=== PATIENT | male | born 1980 | race American Indian/Alaskan Native ===

== ENCOUNTER 2017-08-23 16:47 | Emergency (ER) | payer SELFPAY ==
[2017-08-23] MEDS ORDERED: ASPIRIN PO ONE (18:41)
[2017-08-23 19:20] LABS: Partial Thromboplastin Time 25.9 Sec. (24.2-36.6)
[2017-08-23 19:27] LABS: Basophils % (Auto) 0.7 % (0.0-1.8); Eosinophils # (Auto) 0.2 K/mm3 (0.0-0.4); Eosinophils % (Auto) 4.4 % (0.0-4.3); Hematocrit 43.6 % (35.5-45.6); Lymphocytes # (Auto) 1.8 K/mm3 (1.2-5.4); Lymphocytes % (Auto) 37.7 % (13.4-35.0); Mean Corpuscular HGB Conc 34 % (32-34); Mean Corpuscular Hemoglobin 30 pg (28-32); Mean Corpuscular Volume 88 fl (84-94); Monocytes # (Auto) 0.3 K/mm3 (0.0-0.8); Monocytes % (Auto) 5.7 % (0.0-7.3); Platelet Count 274 K/mm3 (140-440); Red Blood Count 4.98 M/mm3 (3.65-5.03); Red Cell Distribution Width 14.4 % (13.2-15.2)
[2017-08-23 20:02] LABS: BUN/Creatinine Ratio 12; Blood Urea Nitrogen 16 mg/dL (9-20); Calcium 9.2 mg/dL (8.4-10.2); Hemolysis Index 12
[2017-08-23 21:04] VITALS: BP 149/94
[2017-08-23] MEDS ORDERED: MOTRIN PO ONE (21:40)
[2017-08-23] MEDS ORDERED: NORCO 5/325 PO ONE (21:40)
[2017-08-23] MEDS ORDERED: BACTRIM DS PO ONE (21:40)
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
--- NOTE | 2017-08-23 22:02 | XRay Report ---
FINAL REPORT EXAM: XR CHEST ROUTINE 2V HISTORY: BENIGNO/CP TECHNIQUE: PA and lateral views of the chest PRIORS: None. FINDINGS: Lines, tubes, and devices: N/A Lungs and pleura: Trachea is normal in position. Lungs are clear of infiltrate, pleural effusion, vascular congestion, or pneumothorax. Cardiomediastinal silhouette: Cardiac and mediastinal silhouettes are unremarkable. Other: Bony structures are intact. IMPRESSION: No acute cardiopulmonary process seen.
== END 2017-08-23 22:28 | disposition home or self-care (01) ==
LOC: ED 16:47
DX: L03.113 Cellulitis of right upper limb (principal); B35.4 Tinea corporis
CPT/HCPCS: 36415; 71046; 80048; 84484; 85025; 85379; 85610; 85730; 93005; 93010; 99284